=== PATIENT | female | born 1965 | race Caucasian/White ===

== ENCOUNTER 2022-07-21 16:00 | Emergency (ER) | payer SELFPAY ==
[~2022-07-21] VITALS: Ht 152.4 cm; Wt 122.5 kg
[~2022-07-21 16:00] MED LIST: CEFTIN250 MG PO; Famotidine IV; Hydrochlorothiazide PO; METRONIDAZOLE500 MG PO; NORVASC10 MG PO; PEPCID20 MG PO; Potassium Chloride PO; TYLENOL # 31 EA PO; Z.0.AMLODIPINE BESY1; Z.0.HYDROCHLOROTH12.
[2022-07-21 16:49] LABS: BASOPHILS % 0.3 % (0.0-1.0); EOSINOPHILS # (AUTO) 0.1 (0.0-0.4); EOSINOPHILS % 1.6 % (0.0-6.0); HEMATOCRIT 37.8 % (34.2-44.1); HEMOGLOBIN 10.5 g/dL (12.0-16.0); LYMPHOCYTES # (AUTO) 1.4 (1.0-3.2); LYMPHOCYTES % 19.5 % (18.0-39.1); MEAN CORPUSCULAR HEMOGLOBIN 23.2 pg (28-32); MEAN CORPUSCULAR HGB CONC 27.8 g/dL (31-35); MEAN CORPUSCULAR VOLUME 83.4 fL (81-99); MONOCYTES # (AUTO) 0.5 (0.2-0.8); MONOCYTES % 6.5 % (4.4-11.3); NEUTROPHILS # (AUTO) 5.3 (2.1-6.9); NEUTROPHILS % 71.8 % (38.7-80.0); PLATELET COUNT 322 x10e3/uL (140-360); RED BLOOD COUNT 4.53 x10e6/uL (3.6-5.1); RED CELL DISTRIBUTION WIDTH 16.3 % (11.7-14.4)
[2022-07-21 17:07] LABS: ALBUMIN 3.7 g/dL (3.5-5.0); ALBUMIN/GLOBULIN RATIO 0.9 (0.8-2.0); ANION GAP 12.6 mmol/L (8-16); CALCIUM 8.9 mg/dL (8.4-10.2); CREATININE, SERUM 0.97 mg/dL (0.57-1.11); POTASSIUM 3.6 mmol/L (3.5-5.1)
[2022-07-21] MEDS ORDERED: AMLODIPINE BESYLATE 10 MG TAB PO ONE (17:30)
[2022-07-21] MEDS ORDERED: AMLODIPINE BESY10 MG PO (17:49)
[2022-07-21] MEDS ORDERED: IOPAMIDOL 370 MG/ML 100 ML INFUS..BTL INJ ONE (18:07)
[2022-07-21] MEDS ORDERED: CLONIDINE HCL 0.1 MG TAB PO ONE (19:15)
[2022-07-21] MEDS ORDERED: METOPROLOL TARTRATE INJ 1 MG/ML VIAL IV ONE (21:15)
== END 2022-07-21 22:00 | disposition home or self-care (01) ==
LOC: ER 16:19
DX: H53.9 Unspecified visual disturbance (principal); I10 Essential (primary) hypertension
CPT/HCPCS: 36415; 70450; 70496; 70498; 71045; 80053; 85025; 99284; Q9967